=== PATIENT | female | born 1950 | race Caucasian/White ===

== ENCOUNTER 2021-02-02 00:33 | Inpatient (IN) | payer MEDICARE, OTHER ==
[~2021-02-02] VITALS: Ht 170.2 cm; Wt 90.7 kg
[~2021-02-02 00:33] MED LIST: ALBUTEROL2.5 MG/3 M INH; BENZONATATE100 MG PO; CLEOCIN HCL300 MG PO; DALIRESP500 MCG PO; HYDROCODON-ACE1 EAC2 PO; LIPITOR20 MG PO; LOSARTAN-HCTZ1 EAC2 PO; PERCOCET 5/325 T1 EA PO; PROTONIX40 MG PO; PROVENTIL HFA6.7 GM INH; PROZAC40 MG PO; SINGULAIR10 MG PO; ZOFRAN4 MG PO; ZOLPIDEM TARTRA10 MG PO; ZYRTEC10 MG PO; [UNRECOGNIZED DRUG - OTHER] INH
[2021-02-02 01:27] LABS: HEMOGLOBIN 12.1 gm/dl (12.3-15.3); RED BLOOD COUNT 4.04 M/UL (4.00-5.10); WHITE BLOOD COUNT 13.8 K/UL (4.5-11.0)
[2021-02-02 01:50] LABS: BUN/CREATININE RATIO 19 (0-10)
[2021-02-02] MEDS ORDERED: GLUCOTROL XL10 MG PO (10:40)
[2021-02-02] MEDS ORDERED: ZOFRAN 4 MG TAB4 MG PO (15:50)
[2021-02-02] MEDS ORDERED: OMNICEF 300 MG300 MG PO (15:50)
[2021-02-02] MEDS ORDERED: CRESTOR 10 MG T10 MG PO (15:51)
[2021-02-02] MEDS ORDERED: PREDNISONE 20 M20 MG PO (15:51)
[2021-02-03 05:49] LABS: HEMOGLOBIN 11.6 gm/dl (12.3-15.3); WHITE BLOOD COUNT 10.9 K/UL (4.5-11.0)
[2021-02-05 06:29] LABS: HEMOGLOBIN 10.6 gm/dl (12.3-15.3); RED BLOOD COUNT 3.61 M/UL (4.00-5.10)
[2021-02-05 06:39] LABS: WHITE BLOOD COUNT 6.8 K/UL (4.5-11.0)
[2021-02-05] MEDS ORDERED: MEDROL4 MG PO (17:09)
[2021-02-06 02:57] LABS: HEMOGLOBIN 10.9 gm/dl (12.3-15.3); RED BLOOD COUNT 3.69 M/UL (4.00-5.10)
[2021-02-06 03:04] LABS: WHITE BLOOD COUNT 14.4 K/UL (4.5-11.0)
[2021-02-07 08:15] LABS: HEMOGLOBIN 10.8 gm/dl (12.3-15.3); RED BLOOD COUNT 3.72 M/UL (4.00-5.10); WHITE BLOOD COUNT 11.2 K/UL (4.5-11.0)
[2021-02-08 06:52] LABS: HEMOGLOBIN 10.7 gm/dl (12.3-15.3); RED BLOOD COUNT 3.71 M/UL (4.00-5.10)
[2021-02-08 06:54] LABS: WHITE BLOOD COUNT 14.2 K/UL (4.5-11.0)
[2021-02-09 06:35] LABS: HEMOGLOBIN 11.3 gm/dl (12.3-15.3); RED BLOOD COUNT 3.95 M/UL (4.00-5.10); WHITE BLOOD COUNT 14.8 K/UL (4.5-11.0)
[2021-02-09] MEDS ORDERED: SYMBICORT 80-41 INHA INH (12:12)
[2021-02-09] MEDS ORDERED: SPIRIVA18 MCG INH (12:12)
[2021-02-09] MEDS ORDERED: VISTARIL25 MG PO (15:21)
== END 2021-02-09 15:37 | disposition home or self-care (01) | DRG 189 ==
LOC: ER1 00:33 → CDU 08:05 → M/S 08:05
PROVIDERS: Internal Medicine; Physician Assistant; Physician Assistant Medical; ADMIT Internal Medicine
PROC: B24BZZZ Ultrasonography of Heart with Aorta (ICD-10-PCS; principal; 2021-02-04)
DX: J96.21 Acute and chronic respiratory failure with hypoxia (principal); J44.1 Chronic obstructive pulmonary disease with (acute) exacerbation; N17.9 Acute kidney failure, unspecified; J98.11 Atelectasis; E11.9 Type 2 diabetes mellitus without complications; I27.20 Pulmonary hypertension, unspecified; I95.1 Orthostatic hypotension; T38.0X5A Adverse effect of glucocorticoids and synthetic analogues, initial encounter; Z20.822 Contact with and (suspected) exposure to COVID-19; F41.9 Anxiety disorder, unspecified; R53.81 Other malaise; I10 Essential (primary) hypertension; I45.10 Unspecified right bundle-branch block; I07.2 Rheumatic tricuspid stenosis and insufficiency; R19.7 Diarrhea, unspecified; G47.33 Obstructive sleep apnea (adult) (pediatric); Z96.651 Presence of right artificial knee joint; Z96.632 Presence of left artificial wrist joint; Z98.890 Other specified postprocedural states; Z79.82 Long term (current) use of aspirin; Z79.52 Long term (current) use of systemic steroids; Z90.49 Acquired absence of other specified parts of digestive tract; Z88.1 Allergy status to other antibiotic agents; Z88.2 Allergy status to sulfonamides; Z87.440 Personal history of urinary (tract) infections; Z87.891 Personal history of nicotine dependence; Z82.49 Family history of ischemic heart disease and other diseases of the circulatory system; Z80.1 Family history of malignant neoplasm of trachea, bronchus and lung; Z79.4 Long term (current) use of insulin; Z79.899 Other long term (current) drug therapy; Z99.81 Dependence on supplemental oxygen
CPT/HCPCS: ECHO; 36415; 36600; 70450; 71045; 71046; 80048; 80053; 81001; 82272; 82550; 82553; 82728; 82803; 82962; 83036; 83540; 83550; 83605; 83735; 83874; 84484; 85025; 85027; 86140; 87040; 87086; 93005; 93306; 94640; 94664; 94760; 96372; 96374; 97110-GP-CQ; 97162; 97165; 97530; 97530-GP-CQ; 99285; G0378; J1650; J2920; J2930; Q9967; U0002

== ENCOUNTER → 2021-02-15 | Outpatient (CLI) | payer MEDICARE, OTHER ==
[~2021-02-15] MED LIST changes: +CRESTOR 10 MG T10 MG PO; +GLUCOTROL XL10 MG PO; +MEDROL4 MG PO; +OMNICEF 300 MG300 MG PO; +PREDNISONE 20 M20 MG PO; +SPIRIVA18 MCG INH; +SYMBICORT 80-41 INHA INH; +VISTARIL25 MG PO; +ZOFRAN 4 MG TAB4 MG PO
== END ==
LOC: RT 14:12
DX: J44.9 Chronic obstructive pulmonary disease, unspecified (principal)
CPT/HCPCS: 36600; 82803

== ENCOUNTER → 2021-04-02 | Outpatient (CLI) | payer MEDICARE, OTHER | LOC: SLEEP 15:43 | DX: G47.33 Obstructive sleep apnea (adult) (pediatric) (principal); J44.9 Chronic obstructive pulmonary disease, unspecified; R09.02 Hypoxemia | CPT/HCPCS: 95811 ==